=== PATIENT | female | born 2000 | race Caucasian/White ===

== ENCOUNTER 2018-03-08 11:33 | Outpatient (CLI) | payer BC, SELFPAY ==
[2018-03-09 10:51] LABS: Syphilis Serology (RPR) Negative (Negative)
[2018-03-09 11:27] LABS: HIV-1/2 Ag & Ab Screen Negative (NEGAT)
[2018-03-09 11:38] LABS: Hepatitis C Ab w Rflx HCV PCR Negative (NEGAT)
== END 2018-03-08 11:53 ==
PROVIDERS: PCP Internal Medicine; Visit Provider Obstetrics & Gynecology
DX: Z11.3 Encounter for screening for infections with a predominantly sexual mode of transmission (principal); Z11.4 Encounter for screening for human immunodeficiency virus [HIV]; Z11.59 Encounter for screening for other viral diseases
CPT/HCPCS: 36415; 86803; 87389; 86592

== ENCOUNTER 2018-03-08 15:30 | Outpatient (REF) | payer BC, SELFPAY ==
[2018-03-11 15:22] LABS: Chlamydia Result Negative
[2018-03-11 15:50] LABS: GC Result Positive
== END 2018-03-08 15:50 ==
LOC: LBN 15:30
PROVIDERS: PCP Internal Medicine; Visit Provider Obstetrics & Gynecology
DX: Z11.3 Encounter for screening for infections with a predominantly sexual mode of transmission (principal)
CPT/HCPCS: 87491; 87591

== ENCOUNTER 2018-06-25 23:00 | Emergency (ER) | payer BC, SELFPAY ==
[2018-06-25 23:10] VITALS: BP 127/78; PULSE 64; RESP 16; TEMP 36.7; O2SAT 99
--- NOTE | 2018-06-25 23:27 | ED.GENADUL_ITS ---
Discharge Plan Disposition Patient Disposition: HOME Condition: Good Discharge Details Chief Complaint: GI Bleed Clinical Impression: Pinworm infection Primary Care Provider: Jolene Mascorro ED Provider: Calderon Ferraro [facility] Meds and New Rx's Prescriptions: New albendazole 200 mg tablet See Rx Instructions .ROUTE .COMPLEX Qty: 4 RF: 0 Continued Nexplanon 68 mg implant 1 implant SBD ONCE RF: 0 Discharge Instructions Instructions: Enterobiasis (ED) Additional Instructions: Worms have been sent for identification but are likely pinworms. Fill the prescription and take the first dose of medication once you have it. You will need another dose in 2 weeks. Close contacts and family members should contact their primary care doctor's and should also be placed on medication even if asymptomatic. It is important to wash your close, towels, linens. Please follow-up with your primary care next week if you continue to have bleeding, bloating. Return to ED for fever, worsening abdominal pain, heavy bleeding, fainting. Referrals: Jolene Mascorro [Primary Care Provider] - Discharge Data Discharge Date/Time-TO BE ENTERED AT DEPARTURE: 06/26/18 00:58 Medical Decision Making Patient appears to have a significant burden of pinworm. Specimens were collected and sent to lab for identification. We will treat with albendazole pending identification. 400 mg dose followed in 2 weeks by another 400 mg dose. Recommendation for family and close contacts to contact primary care for treatment as well. Patient will to follow strict hygiene and launder clothing, towels, bedding. Return to ED for fever, abdominal pain profuse bleeding, or other concerns. HPI General Mode of arrival: ambulatory . Date/Time Provider Initiated Documentation: 06/25/18 23:25 . Limitations to Documentation: no limitations . Information obtained by: patient . HPI Narrative: Patient presents wiith complaints of rectal bleeding and worms. Patient developed some rectal bleeding over the course of today. Initially thought it was related to hemorrhoids. [place] when [place] went [place] she noticed blood but also noticed little moving white worms. She has felt bloated with decreased appetite and some nausea. She has had no vomiting. She has no abdominal pain. She has been fatigued. She has had some anal itching but did not know what to think about that. She has traveled to [facility] and returned last week. [place] [facility]. Related Data Home Medications Medication Instructions Recorded Confirmed etonogestrel 68 mg subdermal 1 implant SBD ONCE 03/08/18 03/15/18 implant albendazole See Rx Instructions .ROUTE 06/26/18 .COMPLEX #4 tab Previous Rx's Medication Instructions Recorded albendazole See Rx Instructions .ROUTE 06/26/18 .COMPLEX #4 tab Allergies Allergy/AdvReac Type Severity Reaction Status Date / Time No Known Allergies Allergy Unverified 06/25/18 23:18 General Stated Complaint: GI Bleed SANJIV: 3 Review of Systems Review of Systems As documented in HPI otherwise negative as below. Const: no fever, chills, weakness Resp: no cough, SOB, pleuritic pain CV: no CP, diaphoresis, edema, syncope GI: nausea, bloating, rectal bleeding; no abdominal pain, vomiting, diarrhea Neuro: no headache, numbness, focal weakness, confusion PFSH Family History Mother Healthy adult Thyroid disorder Father Healthy adult Other Personal history of malignant neoplasm Social History Smoking/Tobacco Use Status: Never Alcohol Intake: current Alcohol Intake frequency: a few times a week Drug use: Never Details: lives [place] Do you feel safe in your relationship?: Yes Exam Narrative Exam Narrative: Vitals: Normal. Const: WDWN female in NAD. HEENT: NC/AT. Normal facial exam. Eyes: Normal conjunctiva and sclera. Neck: Supple. Trachea midline. Lungs: Normal respiratory effort. GI: Soft. NT/ND. No guarding or rebound. No HSM. Rectal: Female nurse present for exam. Number of 1 cm white mobile worms present. No blood. VALENTIN not done. Neuro: A+O x 3. CN grossly in tact. Good strength and no focal deficit. Skin: Warm and dry without rash. Course Vital Signs Temperature 98.1 F 06/25/18 23:10 Pulse 64 06/25/18 23:10 Respiratory Rate 16 06/25/18 23:10 Blood Pressure 127/78 06/25/18 23:10 Pulse Oximetry 99 06/25/18 23:10 Temperature 98.1 F 06/25/18 23:10 Temperature Source Temporal Artery Scan 06/25/18 23:10 Pulse 64 06/25/18 23:10 Respiratory Rate 16 06/25/18 23:10 Respiratory Effort Non-Labored 06/25/18 23:17 Blood Pressure 127/78 06/25/18 23:10 Blood Pressure Position Sitting 06/25/18 23:10 Pulse Oximetry 99 06/25/18 23:10 Oxygen Delivery Method Room Air 06/25/18 23:10 Oxygen Flow Rate 0 06/25/18 23:10 Pain Level 0 06/25/18 23:10
[2018-06-26 00:58] VITALS: BP 122/75; PULSE 61; RESP 16; TEMP 36.7; O2SAT 99
== END 2018-06-26 00:58 | disposition home or self-care (01) ==
PROVIDERS: Emergency Provider Emergency Medicine; PCP Internal Medicine
DX: B80 Enterobiasis (principal)
CPT/HCPCS: 87169; 99283